=== PATIENT | male | born 1980 | race Caucasian/White ===

== ENCOUNTER 2020-10-09 02:26 | Outpatient (CLI) | payer MEDICAID, SELFPAY ==
--- NOTE | 2020-10-09 08:45 | DI.RAD_ITS ---
EXAM: XR PELVIS AP CLINICAL HISTORY: Evaluate for hip joint asymmetry.LOW BACK PAIN, M54.5. TECHNIQUE: 2D digital imaging was performed. COMPARISON: No exams were available for comparison FINDINGS: No evidence of pelvic nor hip fracture. Mild degenerative changes in the hips. Sacroiliac joints ap pear unremarkable. There is a calcific density in the right side of the pelvis measuring 2 by 1 cm. This is larger than a typical phlebolith. IMPRESSION: DATA REPOSITORY: RADIATION DOSE DELIVERED:
--- NOTE | 2020-10-09 08:45 | DI.RAD_ITS ---
EXAM: XR LUMBAR SPINE AP, LAT CLINICAL HISTORY: Evaluate for disc space loss,LOW BACK PAIN,M54.5. TECHNIQUE: 2D digital imaging was performed. COMPARISON: No exams were available for comparison FINDINGS: There is no evidence of fracture or listhesis. No pars defects. There is partial bilateral sacraliz ation at L5 transverse process levels. There is mild disc space narrowing at L4-5 level. Other disc spaces above this level exhibit normal height. Some disc space narrowing at T12-L1 noted. No scoli osis. Sacroiliac joints appear unremarkable. No osseous lesions. IMPRESSION: Mild disc space narrowing at L4-5 level. This is most probably related to the added stress from sacr um partial sacralization of L5 segment here. DATA REPOSITORY: RADIATION DOSE DELIVERED:
== END 2020-10-09 02:46 ==
PROVIDERS: PCP Family Medicine; Visit Provider Family Medicine
DX: M54.5 Low back pain (principal); M16.0 Bilateral primary osteoarthritis of hip; M51.36 Other intervertebral disc degeneration, lumbar region
CPT/HCPCS: 72100; 72170

== ENCOUNTER 2022-08-18 02:44 | Outpatient (CLI) | payer MEDICAID, SELFPAY ==
[2022-08-18 08:15] LABS: ALT 26 U/L (16-63); AST 16 U/L (15-37); Albumin 4.5 g/dL (3.4-5.0); Alkaline Phosphatase 59 U/L (46-116); Anion Gap 4.4 mmol/L (3-11); BUN 18 mg/dL (7-18); Bilirubin, Total 0.4 mg/dL (0.2-1.0); CO2 31.6 mmol/L (21.0-32.0); CREATININE 0.9 mg/dL (0.70-1.30); Calcium 9.2 mg/dL (8.5-10.1); Calculated LDL 114 mg/dL (<100); Chloride 106 mmol/L (98-107); Cholesterol 184 mg/dL (<200); Estimated GFR 108.68 (mL/min/1.73m2); Glucose 97 mg/dL (74-106); HDL Cholesterol 53 mg/dL (40-60); Potassium 4.4 mmol/L (3.5-5.1); Sodium 142 mmol/L (136-145); Total Protein 7.6 g/dL (6.4-8.2); Triglyceride 88 mg/dL (<150)
== END 2022-08-18 02:45 | disposition home or self-care (01) ==
LOC: LBO 02:44
PROVIDERS: Absent Provider Family Medicine; PCP Family Medicine; Referring Provider Family Medicine; Visit Provider Family Medicine
DX: Z13.220 Encounter for screening for lipoid disorders (principal); Z13.228 Encounter for screening for other metabolic disorders; Z00.00 Encounter for general adult medical examination without abnormal findings
CPT/HCPCS: 36415; 80053; 80061

== ENCOUNTER 2023-07-21 03:51 | Outpatient (CLI) | payer MEDICAID, SELFPAY ==
[2023-07-21 10:47] LABS: Abs Immature Grans 0.02 10^3/uL (0.0-0.06); Absolute Basophil Count 0.05 10^3/uL (0.0-0.2); Absolute Eosinophil Count 0.23 10^3/uL (0.0-0.7); Absolute Lymphocyte Count 1.93 10^3/uL (1.2-3.4); Absolute Monocyte Count 0.64 10^3/uL (0.1-0.8); Absolute Neutrophil Count 3.63 10^3/uL (1.2-6.7); Basophils % 0.8; Eosinophils % 3.5; HCT 46.1 % (40.0-50.0); Immature Grans % 0.3; Lymphocytes % 29.7; MCH 29.1 pg (27.0-33.0); MCHC 32.5 % (32.0-36.0); MCV 90 fL (80-95); MPV 9.5 fL (8.0-11.0); Monocytes % 9.8; Neutrophils % 55.9; Platelet Count 326 10^3/uL (130-400); RBC 5.15 10^6/uL (4.36-5.78); RDW 13.9 % (11.8-14.1); RDW-SD 46.1 fL
[2023-07-21 11:03] LABS: ALT 27 U/L (16-63); AST 20 U/L (15-37); Albumin 4.1 g/dL (3.4-5.0); Alkaline Phosphatase 48 U/L (46-116); Anion Gap 5.4 mmol/L (3-11); BUN 13 mg/dL (7-18); Bilirubin, Total 0.6 mg/dL (0.2-1.0); CO2 33.6 mmol/L (21.0-32.0); CREATININE 0.8 mg/dL (0.70-1.30); Chloride 103 mmol/L (98-107); Estimated GFR 111.92 (mL/min/1.73m2); Glucose 99 mg/dL (74-106); Potassium 4.2 mmol/L (3.5-5.1); Sodium 142 mmol/L (136-145); Total Protein 7.4 g/dL (6.4-8.2)
[2023-07-21 11:07] LABS: Calcium 9.4 mg/dL (8.5-10.1)
== END 2023-07-21 03:52 | disposition home or self-care (01) ==
LOC: LBO 03:51
PROVIDERS: Absent Provider Nurse Practitioner; PCP Nurse Practitioner; Referring Provider Nurse Practitioner; Visit Provider Nurse Practitioner
DX: F10.10 Alcohol abuse, uncomplicated (principal); L28.0 Lichen simplex chronicus
CPT/HCPCS: 36415; 80053; 85025

== ENCOUNTER 2023-12-21 16:46 | Emergency (ER) | payer MEDICARE, MEDICAID, SELFPAY ==
[2023-12-21 16:59] VITALS: BP 127/76; PULSE 98; RESP 20; TEMP 37.7; O2SAT 94
[2023-12-21 17:14] VITALS: BP 127/76; PULSE 98; RESP 20; TEMP 37.7; O2SAT 94
--- NOTE | 2023-12-21 17:27 | W.ED.GENAD ---
Discharge Plan Disposition Patient Disposition: Home Discharge Details Clinical Impression: COVID-19 Primary Care Provider: Mary Chowdhury ED Provider: Lucia Lawrence Home Meds and New Rx's Prescriptions: No Action mometasone [Nasonex 24hr Allergy] 50 mcg/actuation spray,non-aerosol 2 spray intranasal DAILY Rx Instructions: administer into each nostril Discharge Instructions Instructions: COVID-19 in adults - Discharge instructions Additional Instructions: You are COVID-19 positive. Return to emergency care if you develop new fevers, difficulty breathing, chest pain, inability to hold down fluids, or if you are very worried and need to be rechecked again immediately HPI General Date/Time Provider Initiated Documentation: 12/21/23 16:52. HPI Narrative: Wu is a 43-year-old male with history of IBS who presents to the emergency department today for evaluation of possible COVID. He reports that he was at a graduation [employer] on Tuesday. On Tuesday (3 days ago) he developed generalized fatigue, followed by low-grade chills, left-sided congestion and ear discomfort, and cough that kept him up at night and is accompanied by discomfort only when forcefully coughing. He denies recorded fever, headache, sore throat, chest pain, shortness of breath, nausea/vomiting, change in p.o. intake, abdominal pain, change in bladder function, rashes. He did have 1 episode of diarrhea today, denies blood in stool. His father also has similar symptoms. Physical exam reassuring. Moist mucous membranes. TMs pearly toure, translucent. No cervical or submandibular lymphadenopathy. Clear voice. Easy work of breathing, lung sounds clear bilaterally. Normal heart sounds. Moving all extremities equally. Normal gait. History and presentation consistent with viral illness. No red flags concerning for acute bacterial superinfection, dehydration, or electrolyte imbalance at this time requiring diagnostic imaging or blood work. I independently interpreted the following tests: COVID 19 positive flu and RSV negative. As patient is healthy at baseline, Paxlovid not indicated. Recommend symptomatic management, including importance of good hydration and preventing spread of illness. Reviewed red flags indicating need for return to emergency care. He is agreeable with plan of care. Related Data Home Medications Medication Instructions Recorded Confirmed mometasone 50 mcg/actuation nasal 2 spray intranasal DAILY 06/14/23 12/21/23 spray (Nasonex 24hr Allergy) Allergies Allergy/AdvReac Type Severity Reaction Status Date / Time tetracycline Allergy Unknown unknown Verified 12/21/23 17:03 latex AdvReac Unknown rash Verified 12/21/23 17:03 General Stated Complaint: RespSymp RAFAEL: 4 Exam Const General: cooperative, healthy appearing, comfortable and no acute distress Nutritional Appearance: average body habitus HENMT Head: normal to inspection Ears: hearing grossly normal bilaterally and TM's normal bilaterally General nose exam: external nose normal Face and sinus: normal facial exam Mouth: oral mucosae normal Neck Neck: no lymphadenopathy Resp Effort & Inspection: normal respiratory effort and able to speak in complete sentences Auscultation: clear to auscultation bilaterally Cardio Rate: regular rate Rhythm: regular rhythm Neuro General: gait normal, tone normal and no focal motor deficits Cognition: normal cognition Speech: speech normal Course Vital Signs Vital signs: Vital Signs Temperature 37.7 C H 12/21/23 16:59 Pulse 98 H 12/21/23 16:59 Respiratory Rate 20 12/21/23 16:59 Blood Pressure 127/76 12/21/23 16:59 Pulse Oximetry 94 12/21/23 16:59 Temperature 37.7 C H 12/21/23 17:14 Temperature Source Oral 12/21/23 17:14 Pulse 98 H 12/21/23 17:14 Respiratory Rate 20 12/21/23 17:14 Respiratory Effort Normal 12/21/23 17:14 Blood Pressure 127/76 12/21/23 17:14 Blood Pressure Position Sitting 12/21/23 17:14 Pulse Oximetry 94 12/21/23 17:14 Oxygen Delivery Method Room Air 12/21/23 17:14 Oxygen Flow Rate 0 12/21/23 17:14 Medical Decision Making Quality:SDOH Health Related Social Needs: No Data to Display PFSH All Active Problems (Updated 12/21/23 @ 18:12 by Lucia Ansari) COVID-19 (Acute) Alcohol abuse (Chronic) 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, 2009, nasal septal deviation R, recurrent sx Rhinitis, chronic (Chronic 03/10/16) Lichen simplex chronicus (Acute) hands; h/o Dr [place] 2008 Irritable bowel syndrome with diarrhea (Acute 04/23/16) Heart murmur, systolic (Acute 01/25/17) 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 Brother Essential hypertension Brother No problems noted. Social History (Updated 06/14/23 @ 16:46 by Jazmyn Moore LPN) Smoking/Tobacco Use Status: Never Smoking risk assessment performed?: Yes Alcohol Intake: current Alcohol Intake frequency: 3 or more drinks per day Alcohol type: beer Counseling given: Yes (discussed excess alcohol intakes and pt agreed he drinks to much sometimes.) Counseling provided: other Details: ? pt attending AA Substance use type: does not use Adopted: No Caregiver/Support person: No Foster care: No Household members: family Housing: house Number of Children: 0 Education Level: high school Do you need help understanding health information?: Rarely current occupation: Rotary Driller Pets and animals: Yes Pets and animals: dog(s) Sexually active: No Do you think of yourself as: straight/heterosexual Current gender identity: male What is your relationship status?: never How often do you talk on the phone with friends or family?: decline to answer How often do you get together with friends or relatives?: decline to answer How often do you attend congregation or spiritism services?: decline to answer Do you belong to any clubs or organized social groups?: no Panel score (0-1 are the most socially isolated patients): 0 What type of physical activity do you participate in: walking Duration: 45-60 minutes/day Frequency: daily Seatbelt use: always Helmet use: Yes Drive intox or ride w/intox batch mixing truck driver: No Working smoke detector in home: Yes Carbon monox detector in home: Yes Do you feel safe in your relationship?: Yes
[2023-12-21 17:47] LABS: Influenza A PCR Negative (Negative); Influenza B PCR Negative (Negative); RSV PCR Negative (Negative)
[2023-12-21 17:58] LABS: COVID-19 PCR Positive (Negative); Source Nasopharynx
== END 2023-12-21 18:16 | disposition home or self-care (01) ==
PROVIDERS: Emergency Provider Nurse Practitioner Family; PCP Nurse Practitioner
DX: U07.1 COVID-19 (principal)
CPT/HCPCS: 87637; 99282; 99283